=== PATIENT | male | born 1980 | race American Indian/Alaskan Native ===

== ENCOUNTER 2021-02-25 09:20 | Emergency (ER) | payer BC ==
[~2021-02-25] VITALS: Ht 170.2 cm; Wt 88.5 kg
[2021-02-25 09:20] VITALS: BP_SYST 141
[2021-02-25] MEDS: KETOROLAC TROMETHAMINE 60 MG/2 ML VIAL IM ONE (09:44)
[2021-02-25] MEDS ORDERED: NAPR-688 PO (10:30)
[2021-02-25] MEDS ORDERED: VAL2 PO (10:30)
[2021-02-25 11:01] VITALS: BP_SYST 119
== END 2021-02-25 10:28 | disposition home or self-care (01) ==
LOC: SED 09:20
DX: R07.9 Chest pain, unspecified (principal); Z79.899 Other long term (current) drug therapy
CPT/HCPCS: 71045; 93005; 96372; 99283; J1885